=== PATIENT | female | born 2000 | race African-American/Black ===

== ENCOUNTER 2020-02-15 17:12 | Emergency (ER) | payer MEDICAID ==
[~2020-02-15] VITALS: Ht 188 cm; Wt 145.0 kg
[2020-02-15 17:17] VITALS: BP 139/72
[2020-02-15 18:56] LABS: CLARITY URINE CLOUDY (CLEAR); COLOR URINE YELLOW (YELLOW); KETONES URINE NEGATIVE (NEGATIVE); LEUKOCYTE ESTERASE URINE TRACE (NEGATIVE); NITRITE URINE NEGATIVE (NEGATIVE); OCCULT BLOOD URINE NEGATIVE (NEGATIVE); PH URINE 8.5 (4.5-8.0); PROTEIN URINE NEGATIVE (NEGATIVE); SPECIFIC GRAVITY URINE 1.018 (1.005-1.030); UROBILINOGEN URINE 0.2 E.U./dL (0.2-1.0)
== END 2020-02-15 19:01 | disposition left against medical advice (07) ==
LOC: ER 17:12
DX: N76.0 Acute vaginitis (principal)
CPT/HCPCS: 81003; 87491; 87591; 99283